=== PATIENT | female | born 1955 | race Caucasian/White ===

== ENCOUNTER 2016-10-27 11:47 | Emergency (ER) | payer BC ==
[2016-10-27] MEDS ORDERED: ONDANSETRON HCL/PF 2 MG/ML VIAL IV ONE (12:16)
[2016-10-27] MEDS ORDERED: ONDANSETRON HCL/PF 2 MG/ML VIAL ONE (12:20)
[2016-10-27 12:44] LABS: Hematocrit 42.1 % (37.0-47.0); Hemoglobin 13.8 gm/dL (12.5-16.0); Mean Corpuscular Hemoglobin 30.8 pg (27-31); Mean Corpuscular Hgb Conc 32.8 g/dl (32-36); Mean Platelet Volume 9.3 fl (6.0-9.5); Neutrophil # 3.2 K/mm3 (1.3-6.0); Neutrophil % 58.8 % (42-75.0); Platelet Count 223 K/mm3 (150-450); Red Blood Count 4.48 M/mm3 (4.2-5.4); White Blood Count 5.4 K/mm3 (4.0-10.5)
[2016-10-27 12:48] LABS: Urine Bilirubin Negative (NEGATIVE); Urine Blood Negative /ul (NEGATIVE); Urine Ketone Negative (NEGATIVE); Urine Nitrite Negative (NEGATIVE); Urine Protein Negative (NEGATIVE); Urine Urobilinogen Normal (NORMAL); Urine pH 5.5 pH (5.0-7.0)
[2016-10-27 12:56] LABS: Urine Appearance Clear; Urine Bacteria None Seen; Urine Color Yellow; Urine RBC None Seen /hpf (0-5); Urine WBC None Seen /hpf (0-5)
[2016-10-27 13:00] LABS: BUN/Creatinine Ratio 13.4 (9.0-21.6); Blood Urea Nitrogen 11 mg/dL (3-23); Glucose * 114 mg/dL (70-110); Sodium 140 mmol/L (132-142)
[2016-10-27 13:01] LABS: ALT 17 U/L (19-67); AST 16 U/L (0-48); Albumin * 3.8 gm/dl (3.4-5.0); Alkaline Phosphatase * 89 U/L (50-170); Amylase * 57 U/L (25-115); Anion Gap 12.7 mmol/L (6.8-13.8); Bilirubin, Total 0.6 mg/dL (0.0-1.1); Ca. Corrected For Albumin 8.8 mg/dL (8.4-10.2); Chloride 104 mmol/L (97-106); Lipase 164 U/L (73-393); Potassium 3.7 mmol/L (3.4-4.6); Total Protein 7.1 gm/dL (6.2-8.2); Troponin I Less than 0.017 ng/ml (0.00-0.10)
--- NOTE | 2016-10-27 13:50 | ERNOTE ---
Abdominal HPI - Narrative Date of Service: 10/27/16 - General Chief Complaint: Abdominal Pain Time Seen by Provider: 10/27/16 12:11 Source: patient Exam Limitations: no limitations - Immun/Allergies/Home Medications Immunizatons: IMMUNIZATION HX Immunizations Up to Date Yes History of Influenza Vaccine No Hx Pneumococcal Vaccination No Allergies/Adverse Reactions: Allergies Penicillins Allergy (Verified 10/27/16 12:02) Sulfa (Sulfonamide Antibiotics) Allergy (Verified 10/27/16 12:02) Home Medications: HOME MEDICATIONS Cimetidine 300 mg PO DAILY #30 tablet 10/27/16 [Last Taken Unknown] Omeprazole 40 mg PO DAILY #30 capsule. 10/27/16 [Last Taken Unknown] Ondansetron [Zofran Odt] 4 mg PO Q8H PRN #12 tab 10/27/16 [Last Taken Unknown] Umeclidinium Brm/Vilanterol Tr [Anoro Ellipta 62.5-25 Mcg INH] 1 each IH DAILY 10/27/16 [Last Taken Unknown] Varenicline Tartrate [Chantix Starting Month Box] 1 each PO DAILY 10/27/16 [ Last Taken Unknown] - History of Present Illness Narrative: Patient comes due to nausea and upper abdominal pain since 4 days ago. Timing: constant Quality: moderate, aching, dullness, fullness Activities at Onset: none Modifying Factors - (Improves): Present: other - nothing Modifying Factors - (Worsens): Present: breathing, movement Associated Symptoms: Present: nausea, loss of appetite. Absent: headache, back pain, chest pain, neck pain, diaphoresis, diarrhea-gross blood, diarrhea-mucous , fatigue, fever/chills, heartburn, vomiting, shortness of breath, swelling/ mass in abdomen, syncope, weakness Prior Abdominal Problems: Present: none Prior Treatment: Absent: recently seen Review of Systems - Review of Systems Constitutional: Present: malaise. Absent: fever, chills, weakness EYE: Present: no symptoms reported ENT: Present: no symptoms reported Respiratory: Absent: shortness of breath, cough, orthopnea, wheezing Cardiology: Absent: chest pain, palpitations, syncope, edema Gastrointestinal/Abdominal: Present: nausea, abdominal pain - on the RUQ area more. The pain is dullness and fullness. Genitourinary: Present: no symptoms reported Musculoskeletal: Present: no symptoms reported Skin: Absent: rash, lesions Neurological: Present: no symptoms reported Endocrine: Present: no symptoms reported Hematologic/Lymphatic: Absent: easy bruising, easy bleeding Psych: Present: no symptoms reported - Patient's Past Medical History Patient History - Medical: No pertinent hx, UTI'S Patient History - Cancer: No Hx of Cancer Patient History - Surgical Procedures: No surgical history - Social History Living Situations: home Smoking Status: Current every day smoker Have you smoked in the past 12 months: Yes Physical Exam - Physical Exam General Appearance: Present: wd/wn, alert, no apparent distress Eye Exam: Normal inspection: bilateral, PERRL: bilateral, EOMI: bilateral Ears, Nose, Throat: Present: normal ENT inspection, hearing grossly normal, normal pharynx. Absent: dry mucous membranes Neck: Present: normal inspection, nontender. Absent: carotid bruit Respiratory: Present: no respiratory distress, normal breath sounds, no accessory muscle use, chest nontender, lungs clear Cardiovascular/Chest: Present: regular rate, rhythm, normal peripheral pulses, systolic murmur. Absent: diastolic murmur Gastrointestinal/Abdominal: Present: normal bowel sounds, soft, tenderness - Upper Abdominal area. On palpation patient had RLQ pain, distended - mild. Absent: rebound, Obturator sign, hepatomegaly Back Exam: Present: no CVA tenderness Extremity Exam: Present: normal inspection, non-tender, no edema, normal range of motion Neurological Exam: Present: alert, oriented, normal mood/affect, no motor/ sensory deficits Skin Exam: Present: normal color, warm/dry Lymphatic Exam: Present: no adenopathy ED Progress - Date and Time Seen: Date and Time: 10/27/16 15:01 Patient at the moment with no distress, a non surgical abdomen, and feeling better. - Results and Orders Patient's Lab Results:: I have reviewed the patient's lab results. Results and Orders: CBC: Normal CMP: No elevation on LFTs Trop: Negative Lucita/Lip: Negative UA: Negative - Vital Signs Patient's Vital Signs:: I have reviewed the patient's vital signs. Vital Signs: Vital Signs 10/27/16 11:56 Temperature 36.2 C L Pulse Rate 84 Respiratory 16 Rate Blood Pressure 142/75 O2 Sat by Pulse 97 Oximetry - EKG EKG: NSR EKG read: Interp. by me EKG Comments: HR: 77, No ST Elevation, QT/QTc are normal - X-Ray X-Ray #1 X-Ray: chest X-ray Comments: No acute changes reported by Radiologist. - CT/Ultrasound CT/Ultrasound Narrative: Radiology Report was reviewed. Patient GB is not inflame, No Obstruction, No inflammation - Progress/Reassessment Chief Complaint: Abdominal Pain Departure - Departure Clinical Impression: Abdominal pain Qualifiers: Abdominal location: upper abdomen, unspecified Qualified Code(s): R10.10 - Upper abdominal pain, unspecified Disposition: Home self-care Condition: Stable Referrals: Noemi Adkins MD [Primary Care Provider] - Prescriptions: Cimetidine 300 mg PO DAILY #30 tablet Omeprazole 40 mg PO DAILY #30 capsule. Ondansetron [Zofran Odt] 4 mg PO Q8H PRN #12 tab PRN Reason: Nausea And Vomiting
[2016-10-27 15:30] VITALS: BP 125/75
== END 2016-10-27 15:14 | disposition home or self-care (01) ==
LOC: ER 11:47
DX: R10.10 Upper abdominal pain, unspecified (principal); F17.210 Nicotine dependence, cigarettes, uncomplicated; Z87.440 Personal history of urinary (tract) infections

== ENCOUNTER 2017-04-09 10:15 | Emergency (ER) | payer BC ==
[2017-04-09 11:03] LABS: Hematocrit 40.7 % (37.0-47.0); Hemoglobin 13.7 gm/dL (12.5-16.0); Mean Cell Volume 93.3 fl (78-100); Mean Corpuscular Hemoglobin 31.4 pg (27-31); Mean Corpuscular Hgb Conc 33.7 g/dl (32-36); Mean Platelet Volume 9.6 fl (6.0-9.5); Neutrophil # 4.4 K/mm3 (1.3-6.0); Neutrophil % 65.9 % (42-75.0); Platelet Count 220 K/mm3 (150-450); Red Blood Count 4.36 M/mm3 (4.2-5.4); Red Cell Distribution Width 13.5 % (11.5-14.0); White Blood Count 6.6 K/mm3 (4.0-10.5)
[2017-04-09 11:13] LABS: INR 0.96 INR (0.90-1.10); Partial Thrombolplastin Time 25.7 Seconds (24-32)
[2017-04-09 11:23] LABS: ALT 17 U/L (19-67); AST 21 U/L (0-48); Albumin * 3.7 gm/dl (3.4-5.0); Alkaline Phosphatase * 125 U/L (50-170); Anion Gap 10.5 mmol/L (6.8-13.8); BUN/Creatinine Ratio 12.8 (9.0-21.6); Bilirubin, Total 0.9 mg/dL (0.0-1.1); Blood Urea Nitrogen 11 mg/dL (3-23); Ca. Corrected For Albumin 9.4 mg/dL (8.4-10.2); Calcium * 9.5 mg/dL (7.9-10.9); Carbon Dioxide 32.5 mmol/L (24-32.6); Chloride 105 mmol/L (97-106); Glucose * 109 mg/dL (70-110); Sodium 144 mmol/L (132-142); Troponin I Less than 0.017 ng/ml (0.00-0.10)
--- NOTE | 2017-04-09 11:30 | ERNOTE ---
Chest Pain/Cardiac HPI Chief Complaint: Palpitations Time Seen by Provider: 04/09/17 11:14 Source: patient Exam Limitations: no limitations Immunizations: IMMUNIZATION HX Immunizations Up to Date No: UNKNOWN History of Influenza Vaccine No Hx Pneumococcal Vaccination No Allergies/Adverse Reactions: Allergies Sulfa (Sulfonamide Antibiotics) Allergy (Intermediate, Verified 04/09/17 10:39) Hives Penicillins Allergy (Mild, Verified 04/09/17 10:39) Hives Home Medications: HOME MEDICATIONS Cimetidine 300 mg PO DAILY #30 tablet 10/27/16 [Last Taken Unknown] Omeprazole 40 mg PO DAILY #30 capsule. 10/27/16 [Last Taken Unknown] Ondansetron [Zofran Odt] 4 mg PO Q8H PRN #12 tab 10/27/16 [Last Taken Unknown] Umeclidinium Brm/Vilanterol Tr [Anoro Ellipta 62.5-25 Mcg INH] 1 each IH DAILY 10/27/16 [Last Taken Unknown] Varenicline Tartrate [Chantix Starting Month Box] 1 each PO DAILY 10/27/16 [ Last Taken Unknown] Narrative: Patient was resting when she started to have palpitations two days ago that lasted about four hours, they resolved but since then she continues to have intermittent symptoms that last for just a few minutes and resolved with deep breathing. She took her blood pressure while having symptoms initially and the HR was 90bpm, she denies any associated symptoms, no chest pain, no shortness of breath, no lightheadedness Date (Duration): 04/07/17 Timing: intermittent Chest Pain Radiation: no radiation Activities at Onset: none Nitro Today/Relief: no nitro taken today Review of Systems - Review of Systems Constitutional: Absent: recent illness, fever, chills EYE: Absent: double vision ENT: Absent: nose congestion Respiratory: Absent: shortness of breath, cough Cardiology: Present: See HPI, palpitations. Absent: chest pain, syncope Gastrointestinal/Abdominal: Absent: nausea, vomiting, abdominal pain Genitourinary: Present: no symptoms reported Skin: Present: no symptoms reported Neurological: Absent: headache, dizziness/light-headedness - Patient's Past Medical History Patient History - Medical: No pertinent hx, UTI'S Patient History - Cardiac/Respiratory: No pertinent hx Patient History - Cancer: No Hx of Cancer Patient History - Surgical Procedures: No surgical history - Family History Mother Family History - Medical: Diabetes Type 2 Family History - Cardiac/Respiratory: No pertinent hx Family History - Cancer: Other - Social History Living Situations: spouse Abuse History: No History of abuse Psych History: No pertinent hx Smoking Status: Current every day smoker Have you smoked in the past 12 months: Yes Do you dip or chew tobacco: No Alcohol Use: occasionally Drug Use: none - Immunizations Immunizations Up to Date: No - UNKNOWN Hx Pneumococcal Vaccination: No History of Influenza Vaccine: No Physical Exam - Physical Exam General Appearance: Present: wd/wn, alert, no apparent distress, obese Respiratory: Present: no respiratory distress, normal breath sounds, no accessory muscle use, chest nontender, lungs clear Cardiovascular/Chest: Present: regular rate, rhythm, no murmur, normal peripheral pulses Gastrointestinal/Abdominal: Present: nontender, nondistended, soft Extremity Exam: Present: no edema Neurological Exam: Present: alert, oriented, normal mood/affect Skin Exam: Present: normal color, warm/dry ED Progress - Results and Orders Patient's Lab Results:: I have reviewed the patient's lab results. - Vital Signs Patient's Vital Signs:: I have reviewed the patient's vital signs. Vital Signs: Vital Signs 04/09/17 04/09/17 04/09/17 10:35 10:48 11:22 Temperature 36.7 C Pulse Rate 88 85 80 Respiratory 18 16 14 Rate Blood Pressure 143/85 150/68 152/72 O2 Sat by Pulse 94 97 98 Oximetry - EKG EKG: NSR, other - no acute changes EKG read: Interp. by me - X-Ray X-Ray #1 X-Ray: chest - no acute changes Interpretation: Reviewed by me - Progress/Reassessment Chief Complaint: Palpitations Departure - Departure Clinical Impression: Heart palpitations Disposition: Home self-care Condition: Good Instructions: Palpitations, [id number] Referrals: Noemi Adkins MD [Primary Care Provider] - 04/12/17 2:00 pm
[2017-04-09 13:48] VITALS: BP 158/69
== END 2017-04-09 13:52 | disposition home or self-care (01) ==
LOC: ER 10:15
DX: R00.2 Palpitations (principal); Z72.0 Tobacco use